=== PATIENT | female | born 1970 ===

== ENCOUNTER 2019-07-02 06:39 | Emergency (ER) | payer OTHER ==
[~2019-07-02] VITALS: Ht 167.6 cm; Wt 93.0 kg
[2019-07-02] MEDS ORDERED: SYNTHROID75 MCG (06:51)
[2019-07-02] MEDS ORDERED: MELOXICAM7.5 MG (06:51)
== END 2019-07-02 10:35 | disposition home or self-care (01) ==
LOC: ER 06:39
DX: K04.7 Periapical abscess without sinus (principal)